=== PATIENT | female | born 1970 | race Caucasian/White ===

== ENCOUNTER 2017-07-11 01:32 | Emergency (ER) | payer BC ==
[2017-07-11 01:43] VITALS: BP 150/52; PULSE 84; RESP 16; TEMP 98.6; O2SAT 97
--- NOTE | 2017-07-11 02:29 | ED PDOC ---
HPI: Psych/Substance Abuse Time Seen by Provider: 07/11/17 01:45 Chief Complaint (Nursing): Psychiatric Evaluation Chief Complaint (Provider): Depression with SI History Per: Patient History/Exam Limitations: no limitations Onset/Duration Of Symptoms: Unknown Current Symptoms Are (Timing): Still Present Modifying Factor(s): None Associated Symptoms: Depression, Suicidal Thoughts, Suicidal Plan Additional History Per: Patient Additional Complaint(s): 46 y/o female who self reported a plan to overdose on pills this morning after feeling depressed for some time. Patient called the suicide hotline and was subsequently brought to the ED for crisis evaluation. She denies any visual or auditory hallucinations, or medical complaints. Past Medical History Vital Signs: Last Vital Signs Temp 98.6 F 07/11/17 01:40 Pulse 84 07/11/17 01:40 Resp 16 07/11/17 01:40 BP 150/52 L 07/11/17 01:40 Pulse Ox 97 07/11/17 01:40 - Medical History PMH: No Chronic Diseases - Surgical History Surgical History: No Surg Hx - Family History Family History: States: Unknown Family Hx - Social History Current smoker - smoking cessation education provided: No Ex-Smoker (has not smoked in the last 12 months): No Alcohol: None Drugs: Denies - Allergies Allergies/Adverse Reactions: Allergies Allergy/AdvReac Type Severity Reaction Status Date / Time No Known Allergies Allergy Verified 07/11/17 01:46 Review of Systems ROS Statement: Except As Marked, All Systems Reviewed And Found Negative Psych: Positive for: Depression, Suicidal ideation Physical Exam - Reviewed Nursing Documentation Reviewed: Yes Vital Signs Reviewed: Yes - Physical Exam Appears: Positive for: Well, Non-toxic, No Acute Distress Head Exam: Positive for: ATRAUMATIC, NORMAL INSPECTION, NORMOCEPHALIC Skin: Positive for: Normal Color, Warm, DRY Eye Exam: Positive for: EOMI, Normal appearance, PERRL ENT: Positive for: Normal ENT Inspection Neck: Positive for: Normal, Painless ROM Cardiovascular/Chest: Positive for: Regular Rate, Rhythm Respiratory: Positive for: CNT, Normal Breath Sounds Gastrointestinal/Abdominal: Positive for: Normal Exam, Bowel Sounds, Soft Back: Positive for: Normal Inspection Extremity: Positive for: Normal ROM Neurologic/Psych: Positive for: Alert, Oriented - ECG O2 Sat by Pulse Oximetry: 97 Medical Decision Making Medical Decision Making: Impression: Depression Plan: - Crisis evaluation 02:50: Crisis saw the patient and has arranged for follow up. Patient discharged Scribe Attestation: Documented by Emerald Patel, acting as a scribe for Doug Hunter MD Provider Scribe Attestation: All medical record entries made by the Scribe were at my direction and personally dictated by me. I have reviewed the chart and agree that the record accurately reflects my personal performance of the history, physical exam, medical decision making, and the department course for this patient. I have also personally directed, reviewed, and agree with the discharge instructions and disposition. Disposition - Clinical Impression Clinical Impression: Depression Counseled Patient/Family Regarding: Diagnosis, Need For Followup - Disposition Disposition: Routine/Home Disposition Time: 02:51 Condition: STABLE Instructions: Depression (ED) Forms: [facility] (Maltese)
[2017-07-11 02:49] LABS: RBC URINE < 1 /hpf (0-3); URINE BILIRUBIN NEGATIVE (NEGATIVE); URINE BLOOD NEGATIVE (NEGATIVE); URINE COLOR YELLOW (YELLOW); URINE GLUCOSE (UA) NEG (Normal); URINE KETONE NEGATIVE (NEGATIVE); URINE LEUKOCYTE ESTERASE TRACE Leu/uL (Negative); URINE PROTEIN NEGATIVE (NEGATIVE); URINE UROBILINOGEN 0.2-1.0 mg/dL (0.2-1.0); WBC URINE 8 /hpf (0-5)
== END 2017-07-11 03:21 | disposition home or self-care (01) ==
LOC: H.ER 01:32
DX: F32.9 Major depressive disorder, single episode, unspecified (principal)
CPT/HCPCS: 81003; 81025; 99282; G0480

== ENCOUNTER 2018-09-04 13:48 | Emergency (ER) | payer BC ==
[2018-09-04 14:01] VITALS: O2SAT 98
--- NOTE | 2018-09-04 14:30 | ED PDOC ---
HPI: Psych/Substance Abuse Time Seen by Provider: 09/04/18 14:03 Chief Complaint (Nursing): Psychiatric Evaluation History Per: Patient Additional Complaint(s): Pt. states for the past week she's been increasingly more anxious. States she's had a hard time sleeping and has been taking Amibien 20mg qhs without any relief. Also reports she's been taking [place] 450mg daily and Abilify. States she currently lives with her 7 y/o daughter whom she has a good relationship. Reports that she also has a good relationship with her 25 y/o daughter who lives on her own. Denies SI/HI, hallucinations, chest pain, SOB, palpitations, abd pain, headache. Past Medical History Reviewed: Historical Data, Nursing Documentation, Vital Signs Vital Signs: Last Vital Signs Temp 99.3 F 09/04/18 13:55 Pulse 92 H 09/04/18 13:55 Resp 20 09/04/18 13:55 BP 146/82 09/04/18 13:55 Pulse Ox 98 09/04/18 13:55 - Medical History PMH: Anxiety, Arthritis, Depression Denies: Diabetes, Hepatitis, HIV, HTN, Chronic Kidney Disease, Seizures, Sexually Transmitted Disease - Family History Family History: States: No Known Family Hx - Allergies Allergies/Adverse Reactions: Allergies Allergy/AdvReac Type Severity Reaction Status Date / Time No Known Allergies Allergy Verified 09/04/18 13:54 Review of Systems ROS Statement: Except As Marked, All Systems Reviewed And Found Negative Psych: Positive for: Anxiety Physical Exam - Physical Exam Appears: Positive for: Well, Non-toxic, No Acute Distress Skin: Positive for: Normal Color, Warm. Negative for: Rash Eye Exam: Positive for: Normal appearance Cardiovascular/Chest: Positive for: Regular Rate, Rhythm. Negative for: Tachycardia Respiratory: Positive for: Normal Breath Sounds. Negative for: Respiratory Distress Gastrointestinal/Abdominal: Positive for: Normal Exam, Soft. Negative for: Tenderness Neurologic/Psych: Positive for: Alert, Oriented (x3), Mood/Affect (calm, cooperative). Negative for: Aphasia, Facial Droop - ECG O2 Sat by Pulse Oximetry: 98 - Progress ED Course And Treament: Crisis eval, ativan 1mg PO ordered. Pt. evaluated by [place] who spoke with Dr. Pritchett and cleared pt. for discharge. On re-evaluation, pt. reports feeling much better. Advised to stop doubling her Ambien dose and to only take 10mg qhs. Reports she no longer has ambien. Denies SI/HI, chest pain, SOB. Disposition - Clinical Impression Clinical Impression: Anxiety - Patient ED Disposition Is Patient to be Admitted: No - Disposition Referrals: [facility] [Outside] Disposition: Routine/Home Disposition Time: 15:44 Condition: STABLE Additional Instructions: ALAN LIU, thank you for letting us take care of you today. Your provider was Wilmar Paris MD and you were treated for POSS ANXIETY/PSYCH EVAL. The emergency medical care you received today was directed at your acute symptoms. If you were prescribed any medication, please fill it and take as directed. It may take several days for your symptoms to resolve. Return to the Emergency Department if your symptoms worsen, do not improve, or if you have any other problems. Please contact your doctor or call one of the physicians/clinics you have been referred to that are listed on the Patient Visit Information form that is included in your discharge packet. Bring any paperwork you were given at discharge with you along with any medications you are taking to your follow up visit. Our treatment cannot replace ongoing medical care by a primary care provider outside of the emergency department. Thank you for allowing the [facility] team to be part of your care today. If you had an X-Ray or CT scan: A Radiologist will review the ED reading if any change in treatment is needed we will contact you. If you had a blood, urine, or wound culture: It will take several days for the results, if any change in treatment is needed we will contact you. If you had an STI test: It will take 48 hours for the results. Please call after 1 week if you have not heard back. Instructions: Anxiety, Adult (DC) Forms: [facility] (Yakut)
[2018-09-04 14:50] LABS: BARBITURATES, UR NEGATIVE (NEGATIVE); BENZODIAZEPINES, UR NEGATIVE (NEGATIVE); OPIATES, UR POSITIVE (NEGATIVE); PHENCYCLIDINE, UR NEGATIVE (NEGATIVE)
[2018-09-04 15:49] VITALS: BP 128/78; PULSE 78; RESP 18; TEMP 97.8
== END 2018-09-04 15:50 | disposition home or self-care (01) ==
LOC: H.ER 13:48
DX: F41.9 Anxiety disorder, unspecified (principal)
CPT/HCPCS: 81025; 99282; G0480